=== PATIENT | male | born 1955 | race Caucasian/White ===

== ENCOUNTER 2019-12-18 07:02 | Outpatient (NON) | payer SELFPAY ==
[2019-12-18 20:49] LABS: SARS-CoV-2 RNA PCR Negative
== END 2019-12-18 07:03 ==
PROVIDERS: PCP Family Medicine; Visit Provider Family Medicine
DX: R07.9 Chest pain, unspecified (principal); Z20.828 Contact with and (suspected) exposure to other viral communicable diseases
CPT/HCPCS: 87635; C9803; U0003